=== PATIENT | female | born 1985 | race Caucasian/White ===

== ENCOUNTER 2022-01-06 19:57 | Emergency (ER) | payer SELFPAY ==
[~2022-01-06] VITALS: Ht 157.5 cm; Wt 68.3 kg
[2022-01-06] MEDS ORDERED: LISI-186 PO (20:20)
[2022-01-06] MEDS ORDERED: METFORMIN (20:21)
[2022-01-06 21:21] LABS: BASOPHILS % 0.9 % (0.0-2.0); EOSINOPHILS % 1.1 % (0.0-5.0); HEMATOCRIT. 32.3 % (36.0-48.0); HEMOGLOBIN. 10.2 g/dL (12.0-16.0); LYMPHOCYTES % 32.3 % (20.0-50.0); MEAN CORPUSCULAR HEMOGLOBIN 22.9 pg (28.0-32.0); MEAN CORPUSCULAR VOLUME 72.2 fL (81.0-99.0); MEAN PLATELET VOLUME 8.3 fl (7.4-10.4); MONOCYTES % 5.3 % (2.0-8.0); NEUTROPHILS % 60.4 % (40.0-76.0); PLATELET 295 x1000/uL (130-400); RED BLOOD CELL COUNT 4.48 mill/uL (4.2-5.4); RED CELL DISTRIBUTION WIDTH 15.5 % (11.6-14.6)
[2022-01-06 21:36] LABS: CHLORIDE 106 mEq/L (98-107); HCG SCREEN NEGATIVE
[2022-01-06] MEDS ORDERED: TETRACAINE 0.5% OPHTH DROPS 4ML LEFTEYE ONE (22:00)
[2022-01-06] MEDS ORDERED: HYDRALAZINE 20MG/ML VIAL IV ONE (22:30)
[2022-01-07 00:14] VITALS: BP 143/77
== END 2022-01-07 00:29 | disposition home or self-care (01) ==
LOC: ER 20:11
DX: H53.8 Other visual disturbances (principal); E11.9 Type 2 diabetes mellitus without complications; I10 Essential (primary) hypertension
CPT/HCPCS: 36415; 70450; 71045; 80053; 81025; 84703; 85025; 93005; 96374; 99285; J0360